=== PATIENT | female | born 1970 | race Caucasian/White ===

== ENCOUNTER 2018-11-05 13:24 | Emergency (ER) | payer BC, OTHER ==
[~2018-11-05] VITALS: Ht 152.4 cm; Wt 66.7 kg
[2018-11-05 13:28] VITALS: BP 133/77
--- NOTE | 2018-11-05 13:50 | NUR ---
48F C/O HEADACHE 8/10 AND THROBBING. PT STATES SHE WAS SEEN BY A IN [place] AND GIVEN MEDICATION FOR AN EAR INFECTION, BUT THE MEDICATION MADE HER VERY SICK SO SHE STOPPED TAKING IT 2 DAYS AGO. DENIES VISUAL CHANGES, N/V, FEVER. STATES REST DECREASED HEADADCHE. PT IS ALERT AND ORIENTED AND SPEAKING IN COMPLETE SENTENCES, NO NEURO DEFICIT NOTED. STATES SHE FAINTED ONE MONTH AGO. HX: DENIES RX: CLARITROMICINA, LERGOSIN-A, NIMESULIDA
--- NOTE | 2018-11-05 13:57 | NUR ---
DR BURTON AT BEDSIDE
[2018-11-05] MEDS ORDERED: ONDANSETRON 4 MG ODT PO ONE (14:00)
[2018-11-05] MEDS ORDERED: KETOROLAC 30 MG/ML VIAL IM ONE (14:00)
[2018-11-05] MEDS ORDERED: NACL 0.9% 1,000 ML IV ONE (14:45)
[2018-11-05] MEDS ORDERED: MECLIZINE 25 MG TAB PO ONE ×2 (14:45→15:55)
--- NOTE | 2018-11-05 14:49 | NUR ---
LAB AT BEDSIDE
[2018-11-05 15:04] LABS: BASOPHILS # (AUTO) 0.1 K/uL (0.00-0.22); BASOPHILS % (AUTO) 0.5 % (0.0-2.0); EOSINOPHILS # (AUTO) 0.3 K/uL (0-0.4); EOSINOPHILS % (AUTO) 2.8 % (0.0-4.0); HEMATOCRIT 42.6 % (36-48); HEMOGLOBIN 14.1 g/dL (12.0-16.0); LYMPHOCYTES # (AUTO) 3.4 K/uL (2.5-16.5); LYMPHOCYTES % (AUTO) 34.2 % (20.5-51.1); MEAN CORPUSCULAR HEMOGLOBIN 31 pg (27-31); MEAN CORPUSCULAR HGB CONC 33 g/dL (33-37); MEAN CORPUSCULAR VOLUME 94.3 fL (80-94); MONOCYTES # (AUTO) 0.6 K/uL (0.8-1.0); MONOCYTES % (AUTO) 6.4 % (1.7-9.3); NEUTROPHILS # (AUTO) 5.6 K/uL (1.8-7.7); NEUTROPHILS % (AUTO) 56.1 % (42.2-75.2); PLATELET COUNT (AUTO) 274 K/uL (140-450); RED BLOOD CELL COUNT(AUTO) 4.52 MIL/uL (4.20-5.40); RED CELL DISTRIBUTION WIDTH 13.8 % (11.6-13.7)
--- NOTE | 2018-11-05 15:17 | NUR ---
EMT AT BEDSIDE FOR EKG
[2018-11-05 15:33] LABS: ANION GAP 9.7 (8-16); CARBON DIOXIDE 27.4 mmol/L (21-32); CREATININE 0.8 mg/dL (0.6-1.3); POTASSIUM 4.1 mmol/L (3.5-5.1)
[2018-11-05 15:43] LABS: ALBUMIN 3.7 g/dL (3.4-5.0); TOTAL BILIRUBIN 0.2 mg/dL (0.0-1.0)
--- NOTE | 2018-11-05 15:54 | NUR ---
Dr. Pinzon at bedside, patient states she continues to have headache and feels like her head is "empty" and hears "echos" Patient sitting up high fowlers. Pt states "I cannot lie flat because the room will start spinning." Pt states dizziness has not improved. Dr. Pinzon verbalized she will input more orders for medications and a CT of her head. Pt verbalized understanding. Everything translated by myself.
[2018-11-05] MEDS ORDERED: MORPHINE SULFATE 4 MG/ML SYR IVP ONE (15:55)
[2018-11-05] MEDS ORDERED: SUMAtriptan 25 MG TAB PO ONE (17:15)
--- NOTE | 2018-11-05 18:11 | NUR ---
DR BURTON AT BEDSIDE
[2018-11-05] MEDS ORDERED: APAP/BUTAL/CAFF 325/50/40 MG 1 TAB PO ONE (18:15)
--- NOTE | 2018-11-05 18:21 | NUR ---
CALLED PHARMACY THEY WILL BRING FIOROCET
[2018-11-05 19:03] VITALS: BP 121/79
--- NOTE | 2018-11-05 19:04 | NUR ---
Patient discharged with v/s stable. Written and verbal after care instructions given and explained. Patient alert, oriented and verbalized understanding of instructions. Ambulatory with steady gait. All questions addressed prior to discharge. ID band removed. Patient advised to follow up with PMD. Rx of FIOROCET, MECLIZINE,ZOFRAN given. Patient educated on indication of medication including possible reaction and side effects. Opportunity to ask questions provided and answered.
== END 2018-11-05 19:04 | disposition home or self-care (01) ==
LOC: MED 13:24
DX: R42 Dizziness and giddiness (principal); G43.909 Migraine, unspecified, not intractable, without status migrainosus; Z88.0 Allergy status to penicillin
CPT/HCPCS: 36415; 70450; 80053; 81025; 84484; 85025; 96361; 96372; 96374; 99284; J1885; J2270; J7030; J8597; Q0162

== ENCOUNTER 2022-04-04 21:31 | Emergency (ER) | payer OTHER ==
[~2022-04-04] VITALS: Ht 149.9 cm; Wt 63.5 kg
[2022-04-04 22:00] VITALS: BP 119/74
--- NOTE | 2022-04-04 22:03 | NUR ---
TO LOBBY A/W BED AMBULATORY
--- NOTE | 2022-04-04 23:43 | NUR ---
PT TO BED #6
--- NOTE | 2022-04-05 | NUR ---
C/O COUGH , FEVER FOR 5 DAYS
[2022-04-05] MEDS ORDERED: PSEU120T23 PO (00:58)
[2022-04-05] MEDS ORDERED: ROBAC PO (00:58)
--- NOTE | 2022-04-05 01:11 | NUR ---
Patient discharged with v/s stable. Written and verbal after care instructions given and explained. Patient verbalized understanding. Ambulatory with steady gait. All questions addressed prior to discharge. Advised to follow up with PMD.
== END 2022-04-05 01:11 | disposition home or self-care (01) ==
LOC: MED 21:31
DX: J20.9 Acute bronchitis, unspecified (principal); Z20.822 Contact with and (suspected) exposure to COVID-19; Z88.0 Allergy status to penicillin; Z98.890 Other specified postprocedural states
CPT/HCPCS: 71045; 87426; 87804; 99284; Q0092